=== PATIENT | male | born 1990 | race Caucasian/White ===

== ENCOUNTER 2017-08-06 16:38 | Emergency (ER) | payer BC ==
[2017-08-06 16:43] VITALS: BP 150/86; PULSE 83; RESP 16; TEMP 99.7
--- NOTE | 2017-08-06 17:18 | ED ---
URI HPI - General Chief Complaint: Upper Respiratory Infection Stated Complaint: ENT, Cough, Head Pressure Time Seen by Provider: 08/06/17 17:04 Source: patient Mode of arrival: ambulatory Limitations: no limitations - History of Present Illness Initial Comments: 27-year-old male patient presented to the emergency department today for complaints of right-sided ear pain. He states that he has been sick with cough , nasal congestion, and sore throat for the last week. He states that his symptoms did start to improve however he woke today with right-sided ear pain. He states that the pain has been severe. He denies any drainage from the ear. He denies any current fever or chills. He states he did have ear infections as a child but nothing as an adult. He denies any history of diabetes. He denies any drug or alcohol use. Patient denies any recent rash, shortness breath, chest pain, abdominal pain, nausea, vomiting, diarrhea, constipation, back pain , numbness, tingling, dizziness, weakness, hematuria, dysuria, urinary urgency, urinary frequency, headache, visual changes, or any other complaints. - Related Data Previous Rx's Medication Instructions Recorded Amoxicillin 500 mg PO TID #30 capsule 08/06/17 Allergies Allergy/AdvReac Type Severity Reaction Status Date / Time No Known Allergies Allergy Verified 08/06/17 16:42 Review of Systems ROS Statement: Those systems with pertinent positive or pertinent negative responses have been documented in the HPI. ROS Other: All systems not noted in ROS Statement are negative. Past Medical History Past Medical History: No Reported History History of Any Multi-Drug Resistant Organisms: None Reported Past Surgical History: No Surgical Hx Reported Past Psychological History: No Psychological Hx Reported Smoking Status: Current every day smoker Past Alcohol Use History: Rare Past Drug Use History: None Reported General Exam Limitations: no limitations General appearance: alert, in no apparent distress, other (physical well- developed, well-nourished adult male patient in no acute distress. Vital signs upon presentation are temperature 99.7F, pulse 83, respirations 16, blood pressure 150/86, pulse ox 99% on room air.) Eye exam: Present: normal appearance, PERRL, EOMI. Absent: scleral icterus, conjunctival injection, periorbital swelling ENT exam: Present: normal exam, mucous membranes moist, TM's normal bilaterally (right sided tympanic membrane erythema and bulging, dull. Left tympanic membrane is normal). Absent: normal oropharynx (pharyngeal erythema) Neck exam: Present: normal inspection. Absent: tenderness, meningismus, lymphadenopathy Respiratory exam: Present: normal lung sounds bilaterally. Absent: respiratory distress, wheezes, rales, rhonchi, stridor Cardiovascular Exam: Present: regular rate, normal rhythm, normal heart sounds. Absent: systolic murmur, diastolic murmur, rubs, gallop, clicks GI/Abdominal exam: Present: soft, normal bowel sounds. Absent: distended, tenderness, guarding, rebound, rigid Neurological exam: Present: alert, oriented X3, CN II-XII intact Psychiatric exam: Present: normal affect, normal mood Skin exam: Present: warm, dry, intact, normal color. 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 Patient has been sick with upper respiratory symptoms for the last week. Physical examination did reveal clear lung sounds with good air movement. Pharyngeal erythema. Right tympanic membrane was erythematous and bulging. Patient had no mastoid tenderness. We did forego influenza testing at this time as his symptoms have been present for one week, states that his symptoms are somewhat improving other than his ear. We will give a prescription for amoxicillin. He is instructed to take ibuprofen and acetaminophen for pain control. He is instructed to return here immediately for any new, worsening, or concerning symptoms. He is instructed to follow-up with his primary care physician for recheck in 1-2 days. He verbalizes understanding and agrees with this plan. Disposition Clinical Impression: Otitis media, Upper respiratory infection Disposition: HOME SELF-CARE Condition: Good Instructions: Otitis Media (ED), Upper Respiratory Infection (ED) Additional Instructions: Rest. Increase fluids. Use over the counter decongestants and nasal sprays for symptom relief. Follow up with your primary care physician in 1-2 days for a recheck. Return here immediately for any new, worsening, or concerning symptoms. Prescriptions: Amoxicillin 500 mg PO TID #30 capsule Referrals: None,Stated [Primary Care Provider] - 1-2 days Time of Disposition: 17:17
[2017-08-06] MEDS ORDERED: IBUPROFEN 600 MG TAB PO STA (17:31)
== END 2017-08-06 17:36 | disposition home or self-care (01) ==
LOC: EC 16:38
DX: H66.91 Otitis media, unspecified, right ear (principal); J06.9 Acute upper respiratory infection, unspecified; F17.200 Nicotine dependence, unspecified, uncomplicated
CPT/HCPCS: 99283